=== PATIENT | female | born 1945 | race Caucasian/White ===

== ENCOUNTER 2016-08-30 12:32 | Emergency (ER) | payer MEDICARE ==
[2016-08-30] MEDS ORDERED: MORPHINE SULFATE 5 MG/ML PFS IVP ONE ×2 (13:14→15:11)
[2016-08-30] MEDS ORDERED: 0.9 % SODIUM CHLORIDE 1,000 ML BAG IV ONE (13:14)
--- NOTE | 2016-08-30 13:20 | Emergency Department Record ---
History of Present Illness - General Chief Complaint: Fall Injury Stated Complaint: FALL/ R RIB PAIN/ R ELBOW INJURY Time Seen by Provider: 08/30/16 13:06 Source: Patient Mode of Arrival: Ambulatory Limitations: No limitations - History of Present Illness Initial Comments: 71 yo female presents with right rib and RUQ pain. She fell 5 days ago in [place] on vacation. She was not evaluated there as they were nearing boarding her plane home. She has had right lower rib pain and RUQ pain since the fall. She did not hit her head or neck. She bruised her right elbow as well. MD Complaint: Fall Onset/Timin -: Days(s) Fall From: Down stairs (#) When Fall Occurred: # Days [employer] Fall Witnessed: Yes, by family Place Fall Occurred: Other Loss of Consciousness: None Prolonged Down Time?: No Symptoms Prior to Fall: Other Location: Head, Chest, Abdomen Location - Extremities: Right: Elbow Severity: Moderate Severity scale (1-10): 8 Quality: Sharp Associated Symptoms: Denies - Jamshid Coma Scale Eye Response: (4) Open spontaneously Motor Response: (6) Obeys commands Verbal Response: (5) Oriented Jamshid Total: 15 - Related Data Home Medications Medication Instructions Recorded Confirmed Last Taken Alprazolam [Xanax] 1 mg PO ASDIR 01/15/16 08/30/16 08/29/16 Carvedilol [Coreg] 12.5 mg PO DAILY 01/15/16 08/30/16 08/30/16 Gabapentin [Gabapentin] 100 mg PO BID 01/15/16 08/30/16 08/30/16 Gabapentin [Gabapentin] 400 mg PO QHS 01/15/16 08/30/16 08/29/16 Nortriptyline HCl [Pamelor] 25 mg PO QHS 01/15/16 08/30/16 08/29/16 Omeprazole [Prilosec] 20 mg PO DAILY 01/15/16 08/30/16 08/29/16 Oxybutynin Chloride [Oxybutynin 10 mg PO DAILY 01/15/16 08/30/16 08/29/16 Chloride ER] Sertraline HCl [Sertraline HCl] 100 mg PO BID 01/15/16 08/30/16 08/30/16 Simvastatin [Simvastatin] 40 mg PO DAILY 01/15/16 08/30/1617 Sumatriptan Succinate [Imitrex] 100 mg PO ASDIR 01/15/16 08/30/16 08/29/16 Previous Rx's Medication Instructions Recorded Docusate Sodium [Colace] 100 mg PO DAILY #20 cap 08/30/16 Hydrocodone/Acetaminophen [Randlett 1 each PO Q6H #25 tablet 08/30/16 7.5-325 Tablet] Lidocaine Patch [Lidoderm] 1 ea TOP Q12H #14 patch 08/30/16 Allergies Allergy/AdvReac Type Severity Reaction Status Date / Time povidone-iodine Allergy HIVES Verified 01/15/16 16:12 [From Betadine] soap [From Betadine] Allergy HIVES Verified 01/15/16 16:12 Travel Screening - Travel/Exposure Within Last 30 Days Have you traveled within the last 30 days?: Yes Location Detail:: [place] - Travel/Exposure Within Last Year Have you traveled outside the [place] in the last year?: Yes Location Detail:: [place] - Additonal Travel Details Have you been exposed to anyone with a communicable illness?: No - Travel Symptoms Symptom Screening: None Review of Systems Constitutional: Denies: Chills, Fever, Malaise, Weakness Eyes: Denies: Eye discharge, Eye pain ENT: Denies: Congestion, Ear pain, Throat pain Respiratory: Denies: Cough, Dyspnea, Hemoptysis, Stridor, Wheezes Cardiovascular: Reports: Chest pain. Denies: Palpitations, Syncope Endocrine: Denies: Fatigue, Polydipsia, Polyuria Gastrointestinal: Reports: Abdominal pain. Denies: Diarrhea, Nausea, Vomiting Genitourinary: Denies: Dysuria, Hematuria, Urgency Musculoskeletal: Reports: As per HPI, Arthralgia, Myalgia. Denies: Back pain, Joint swelling, Neck pain Skin: Reports: Bruising Neurological: Denies: Headache, Numbness, Vertigo, Weakness Psychiatric: Denies: Anxiety Hematological/Lymphatic: Denies: Blood Clots, Easy bleeding, Easy bruising, Swollen glands Past Medical History - SOCIAL HISTORY Smoking Status: Never smoker Alcohol Use: None Drug Use: None - RESPIRATORY Hx Respiratory Disorders: No - CARDIOVASCULAR Hx Cardio Disorders: Yes Hx Hypertension: Yes Comment:: hypercholesteremia - NEURO Hx Neuro Disorders: Yes Hx CVA: Yes (dbl vision) Hx Headaches: Yes Hx Neuropathy: Yes - GI Hx GI Disorders: Yes Hx Reflux: Yes Hx Irritable Bowel: Yes - Hx Genitourinary Disorders: Yes Hx Bladder Problem: Yes Hx Kidney Stones: Yes - ENDOCRINE Hx Endocrine Disorders: No - MUSCULOSKELETAL Hx Musculoskeletal Disorders: Yes Hx Arthritis: Yes - PSYCH Hx Psych Problems: Yes Hx Anxiety: Yes Hx Depression: Yes - HEMATOLOGY/ONCOLOGY Hx Hematology/Oncology Disorders: Yes Hx Anemia: Yes Family Medical History Any Significant Family History?: No Physical Exam - General General Appearance: Alert, Oriented x3, Cooperative, No acute distress Limitations: No limitations - Head Head exam: Atraumatic, Normocephalic, Normal inspection Head exam detail: negative: Abrasion, Contusion, Jasmine's sign, General tenderness, Hematoma, Laceration - Eye Eye exam: Normal appearance, PERRL. negative: Conjunctival injection, Periorbital swelling - ENT ENT exam: Normal exam, Mucous membranes moist, Normal external ear exam, Normal orophraynx Ear exam: Normal external inspection. negative: External canal tenderness Nasal Exam: Normal inspection. negative: Discharge, Sinus tenderness Mouth exam: Normal external inspection, Tongue normal Teeth exam: Normal inspection. negative: Dental caries Throat exam: Normal inspection. negative: Tonsillar erythema, Tonsillar exudate - Neck Neck exam: Normal inspection, Full ROM. negative: Tenderness - Respiratory Respiratory exam: Chest wall tenderness (right lower lateral ribs tender, no bruising). negative: Accessory muscle use, Decreased breath sounds, Prolonged expiratory, Respiratory distress - Cardiovascular Cardiovascular Exam: Regular rate, Normal rhythm, Normal heart sounds Peripheral Pulses: 2+: Radial (R), Radial (L) - GI/Abdominal GI/Abdominal exam: Soft, Tenderness (tender RUQ near tender lower ribs, soft, otherwise non tender) - Rectal Rectal exam: Deferred - exam: Deferred - Extremities Extremities exam: Full ROM, Normal capillary refill, Tenderness (tender and bruising to right elbow, full ROM). negative: Normal inspection, Calf tenderness, Pedal edema Image of Full Body: 1 - posterior bruising mild swelling 2 - small abrasions 3 - tender to palpaion, normal inspection - Back Back exam: Reports: Normal inspection, Full ROM. Denies: CVA tenderness (R), CVA tenderness (L), Muscle spasm, Paraspinal tenderness, Rash noted, Tenderness , Vertebral tenderness - Neurological Neurological exam: Alert, Normal gait, Oriented X3 - Psychiatric Psychiatric exam: Normal affect, Normal mood. negative: Agitated, Anxious - Skin Skin exam: Abrasion Course Vital Signs 08/30/16 12:44 Temperature 98.2 F Pulse Rate 76 Respiratory 16 Rate Blood Pressure 141/94 Pulse Ox 97 - Reevaluation(s) Reevaluation #1: The lab results were reviewed. No acute changes on the CBC or CMP The XR of the elbow was read as soft tissue swelling ow negative The CT scan of the chest, abdomen, and pelvis was reviewed. No acute injury. She has a heavily calcified cystic lesion in the liver. 08/30/16 15:29 Reevaluation #2: 08/30/16 16:23the patient is aware of the liver cyst that has been known since the . She was instructed to still follow up the final CT result with the PCP Medical Decision Making - Lab Data Result diagrams: 08/30/16 13:20 08/30/16 13:20 Disposition Disposition: Discharge Clinical Impression: Contusion, Contusion of rib on right side Disposition: Home, Self-Care Condition: (1) Good Instructions: Rib Contusion (ED) Additional Instructions: You will need to follow up the CT findings with your doctor to discuss follow up studies if needed of the thyroid and the liver cyst Use the incentive spirometer as directed to help expand your lungs Return if you have uncontrolled pain or any other new concerns You may need an MRI of the abdomen with contrast of the liver if you do not have other prior tests of your liver. Call your doctor tomorrow for close follow up Prescriptions: Docusate Sodium [Colace] 100 mg PO DAILY #20 cap Hydrocodone/Acetaminophen [Randlett 7.5-325 Tablet] 1 each PO Q6H #25 tablet Lidocaine Patch [Lidoderm] 1 ea TOP Q12H #14 patch Forms: Patient Portal Access Time of Disposition: 16:12
[2016-08-30 13:43] LABS: BASO % 0.7 % (0-6); EOS % 3.7 % (0-6); GRAN % 64.9 % (47-80); HEMATOCRIT 42.4 % (35.0-47.0); HEMOGLOBIN 14.1 gm/dl (11.6-16.0); LYMPH % 22.4 % (16-45); MEAN CELL VOLUME 91.2 fl (81-97); MEAN CORPUSCULAR HEMOGLOBIN 30.3 pg (27-33); MEAN CORPUSCULAR HGB CONC 33.3 g/dl (32-36); MEAN PLATELET VOLUME 8.1 fl (7.4-10.4); MONO % 8.3 % (0-9); PLATELET COUNT 208 K/uL (130-400); RED BLOOD COUNT 4.65 M/uL (3.80-5.40); RED CELL DISTRIBUTION WIDTH 14.3 % (11.5-14.5); WHITE BLOOD COUNT W/O DIFF 6.7 K/uL (4.2-12.2)
[2016-08-30 13:53] LABS: ALB/GLOB RATIO 1.4 (1.1-1.8); ALBUMIN 4.5 gm/dL (3.5-5.0); ALKALINE PHOSPHATASE 102 U/L (38-126); ALT/SGPT 34 U/L (9-52); ANION GAP 6.8 (7-16); AST/SGOT 32 U/L (14-36); BILIRUBIN,TOTAL 0.66 mg/dL (0.2-1.3); BLOOD UREA NITROGEN 15 mg/dL (7-17); CARBON DIOXIDE 27.2 mmol/L (22-30); CREATININE 0.9 mg/dL (0.52-1.04); EST GLOMERULAR FILTRATION RATE > 60 ml/min; GLUCOSE,RANDOM 113 mg/dL (70-110); TOTAL PROTEIN 7.7 gm/dL (6.3-8.2)
[2016-08-30 14:04] LABS: PARTIAL THROMBOPLASTIN TIME 28.7 SECONDS (24.5-39.1); PROTHROMBIN TIME (PATIENT) 11.3 SECONDS (9.5-12.1)
[2016-08-30] MEDS ORDERED: LIDOCAINE 5% PATCH TOP ONE (15:11)
[2016-08-30] MEDS ORDERED: DIPHENHYDRAMINE HCL IV 50 MG/ML VIAL IVP ONE (15:38)
--- NOTE | 2016-09-03 08:29 | RADIOLOGY REPORT ---
EXAM: RIGHT ELBOW HISTORY: ELBOW PAIN. TECHNIQUE: Three views of the right elbow were obtained. Comparison: None. Encounter: Initial. FINDINGS: Negative for fracture or dislocation. The soft tissues are unremarkable. The joint spaces are preserved. IMPRESSION: NEGATIVE RIGHT ELBOW EXAMINATION. JOB NUMBER: [id number] MTDD
--- NOTE | 2016-09-03 08:36 | CT SCAN REPORT ---
EXAM: CT OF THE CHEST, ABDOMEN AND PELVIS HISTORY: PAIN. TECHNIQUE: CT of the chest, abdomen and pelvis was performed following IV administration of 100 ml of Omnipaque 300 contrast. Oral contrast was also administered. Comparison: None. FINDINGS: CT OF THE CHEST: Nodularity of the left lobe of the thyroid correlate with function. Bilateral breast prostheses. The heart and pericardium are unremarkable. Calcified mediastinal and hilar lymph nodes. No pneumothorax. The visualized airways are patent. Calcified granulomata are noted bilaterally. Linear scarring in the lateral right upper lobe. No effusion. Scarring in each lung base. CT OF THE ABDOMEN AND PELVIS: The osseous structures of the abdomen/pelvis are grossly intact. There is a heavily calcified mass in the posterior right hepatic lobe measuring 6.2 x 5.4 cm. The etiology is indeterminate. This could relate to a heavily calcified cyst. Calcified metastatic lesion felt less likely. The spleen, adrenal glands, pancreas, and kidneys are unremarkable. The gallbladder is present. No evidence for bowel obstruction. No free air or free fluid. Moderate stool in the colon. IMPRESSION: 1. EVIDENCE OF PRIOR GRANULOMATOUS DISEASE. BILATERAL BREAST PROSTHESES. 2. NODULARITY OF THE LEFT LOBE OF THE THYROID. CORRELATE WITH THYROID FUNCTION. 3. HEAVILY CALCIFIED CYSTIC MASS IN THE RIGHT HEPATIC LOBE MAY SIMPLY RELATE TO A CALCIFIED HEPATIC CYST. NEOPLASTIC ETIOLOGY CANNOT BE EXCLUDED ENTIRELY. 4. MODERATE STOOL THROUGHOUT THE COLON. JOB NUMBER: [id number] [facility]
== END 2016-08-30 16:30 | disposition home or self-care (01) ==
LOC: ER 12:32
DX: S20.211A Contusion of right front wall of thorax, initial encounter (principal); S50.01XA Contusion of right elbow, initial encounter; S80.12XA Contusion of left lower leg, initial encounter; R10.11 Right upper quadrant pain; K76.89 Other specified diseases of liver; W10.9XXA Fall (on) (from) unspecified stairs and steps, initial encounter; Y92.838 Other recreation area as the place of occurrence of the external cause
CPT/HCPCS: 99284 ×2; 96376; 96374; 96375; 85025; 85730; 85610; 80053; 73080; 71260; 74177; 94010; Q9967; J2270; J1200; J7030

== ENCOUNTER 2017-02-11 15:26 | Emergency (ER) | payer MEDICARE ==
--- NOTE | 2017-02-11 16:21 | Emergency Department Record ---
History of Present Illness - General Chief complaint: Female Urogenital Problem Stated complaint: ABD PAIN Time Seen by Provider: 02/11/17 16:12 Source: Patient, RN notes reviewed Mode of Arrival: Ambulatory - History of Present Illness Initial comments: abdominal pain and dysuria started 3 weeks ago and she has right flank pain and abdominal pain and bilateral low back pain Onset/Timin -: Week(s) Location: Suprapubic Severity: Moderate Severity scale (1-10): 7 Quality: Sharp, Stabbing, Other Consistency: Intermittent Improves with: None Worsens with: Movement Associated Symptoms: Denies other symptoms - Related Data Previous Rx's Medication Instructions Recorded Docusate Sodium [Colace] 100 mg PO DAILY #20 cap 08/30/16 Ciprofloxacin HCl [Cipro] 500 mg PO Q12HR #20 tablet 02/11/17 Hydrocodone/Acetaminophen [Salyer 1 each PO Q6HR #30 tablet 02/11/17 5-325 Tablet] Allergies Allergy/AdvReac Type Severity Reaction Status Date / Time povidone-iodine Allergy HIVES Verified 02/11/17 15:53 [From Betadine] soap [From Betadine] Allergy HIVES Verified 02/11/17 15:53 Travel Screening - Travel/Exposure Within Last 30 Days Have you traveled within the last 30 days?: No - Travel/Exposure Within Last Year Have you traveled outside the [place] in the last year?: No - Additonal Travel Details Have you been exposed to anyone with a communicable illness?: No - Travel Symptoms Symptom Screening: None Review of Systems Reviewed: No additional complaints except as noted below Constitutional: Reports: As per HPI. Denies: Chills, Fever, Malaise, Night sweats, Weakness, Weight change Eyes: Reports: As per HPI. Denies: Eye discharge, Eye pain, Photophobia, Vision change ENT: Reports: As per HPI. Denies: Congestion, Dental pain, Ear pain, Epistaxis , Hearing loss, Throat pain Respiratory: Reports: As per HPI. Denies: Cough, Dyspnea, Hemoptysis, Stridor, Wheezes Cardiovascular: Reports: As per HPI. Denies: Arrhythmia, Chest pain, Dyspnea on exertion, Edema, Murmurs, Orthopnea, Palpitations, Paroxysmal nocturnal dyspnea, Rheumatic Fever, Syncope Endocrine: Reports: As per HPI. Denies: Fatigue, Heat or cold intolerance, Polydipsia, Polyuria Gastrointestinal: Reports: As per HPI, Abdominal pain. Denies: Constipation, Diarrhea, Hematemesis, Hematochezia, Melena, Nausea, Vomiting Genitourinary: Reports: As per HPI, Dysuria, Frequency, Urgency. Denies: Abnormal menses, Discharge, Dyspareunia, Hematuria, Incontinence, Retention Musculoskeletal: Reports: As per HPI, Back pain. Denies: Arthralgia, Gout, Joint swelling, Myalgia, Neck pain Skin: Reports: As per HPI. Denies: Bruising, Change in color, Change in hair/ nails, Lesions, Pruritus, Rash Neurological: Reports: As per HPI. Denies: Abnormal gait, Confusion, Headache, Numbness, Paresthesias, Seizure, Tingling, Tremors, Vertigo, Weakness Psychiatric: Reports: As per HPI. Denies: Anxiety, Auditory hallucinations, Depression, Homicidal thoughts, Suicidal thoughts, Visual hallucinations Hematological/Lymphatic: Reports: As per HPI. Denies: Anemia, Blood Clots, Easy bleeding, Easy bruising, Swollen glands Past Medical History - SOCIAL HISTORY Smoking Status: Never smoker Alcohol Use: Occasional Drug Use: None - RESPIRATORY Hx Respiratory Disorders: No - CARDIOVASCULAR Hx Cardio Disorders: Yes Hx Hypertension: Yes Comment:: hypercholesteremia - NEURO Hx Neuro Disorders: Yes Hx CVA: Yes (dbl vision) Hx Headaches: Yes Hx Neuropathy: Yes - GI Hx GI Disorders: Yes Hx Reflux: Yes Hx Irritable Bowel: Yes - Hx Genitourinary Disorders: Yes Hx Bladder Problem: Yes Hx Kidney Stones: Yes - ENDOCRINE Hx Endocrine Disorders: No - MUSCULOSKELETAL Hx Musculoskeletal Disorders: Yes Hx Arthritis: Yes - PSYCH Hx Psych Problems: Yes Hx Anxiety: Yes Hx Depression: Yes - HEMATOLOGY/ONCOLOGY Hx Hematology/Oncology Disorders: Yes Hx Anemia: Yes Family Medical History Any Significant Family History?: No Physical Exam - General General Appearance: Alert, Oriented x3, Cooperative, Mild distress - Head Head exam: Normal inspection - Eye Eye exam: Normal appearance, PERRL Pupils: Normal accommodation - ENT ENT exam: Normal exam, Mucous membranes moist, Normal external ear exam, Normal orophraynx, TM's normal bilaterally Ear exam: Normal external inspection. negative: External canal tenderness Nasal Exam: Normal inspection. negative: Discharge, Sinus tenderness Mouth exam: Normal external inspection, Tongue normal Teeth exam: Normal inspection. negative: Dental caries Throat exam: Normal inspection. negative: Tonsillar erythema, Tonsillar exudate - Neck Neck exam: Normal inspection, Full ROM. negative: Tenderness - Respiratory Respiratory exam: Normal lung sounds bilaterally. negative: Respiratory distress - Cardiovascular Cardiovascular Exam: Regular rate, Normal rhythm, Normal heart sounds - GI/Abdominal GI/Abdominal exam: Soft, Normal bowel sounds, Tenderness (right flank and bilateral lower abd pain and bilateral lumbar pain) - Rectal Rectal exam: Deferred - exam: Deferred - Extremities Extremities exam: Normal inspection, Full ROM, Normal capillary refill. negative: Tenderness - Back Back exam: Reports: Normal inspection, Full ROM. Denies: Muscle spasm, Rash noted, Tenderness - Neurological Neurological exam: Alert, Normal gait, Oriented X3, Reflexes normal - Psychiatric Psychiatric exam: Normal affect, Normal mood - Skin Skin exam: Dry, Intact, Normal color, Warm Course Vital Signs 02/11/17 15:56 Temperature 98.2 F Pulse Rate 94 H Respiratory 17 Rate Blood Pressure 134/69 Pulse Ox 98 - Reevaluation(s) Reevaluation #1: Patient stated she has had this liver mass since 1992 and it was worked up in [place] and no biopsy because to dangerous to biopsy because of risk of bleeding. 02/11/17 18:11 Medical Decision Making - Data Complexity MDM Data: Labs Ordered and/or Reviewed, X-Ray Ordered and/or Reviewed ( calcified mass in the liver similar to before) - Lab Data Result diagrams: 02/11/17 16:22 02/11/17 17:02 Disposition Clinical Impression: Dysuria, Mass of right lobe of liver Abdominal pain Qualifiers: Abdominal location: right upper quadrant Qualified Code(s): R10.11 - Right upper quadrant pain UTI (urinary tract infection) Qualifiers: Urinary tract infection type: acute cystitis Hematuria presence: without hematuria Qualified Code(s): N30.00 - Acute cystitis without hematuria Disposition: Home, Self-Care Condition: (1) Good Instructions: Abdominal Pain (ED) Additional Instructions: follow up with Dr. Bhavya mack as scheduled [place] 5 mg every 6 hours Prescriptions: Hydrocodone/Acetaminophen [Salyer 5-325 Tablet] 1 each PO Q6HR #30 tablet Ciprofloxacin HCl [Cipro] 500 mg PO Q12HR #20 tablet Forms: Patient Portal Access Time of Disposition: 18:41 Quality - Quality Measures Quality Measures: N/A - Blood Pressure Screening Does Patient Have Any of the Following: Active Dx of HTN Blood Pressure Classification: Pre-Hypertensive BP Reading Systolic Measurement: 134 Diastolic Measurement: 69 Screening for High Blood Pressure: Patient Exclusion, Hx of HTN [[id number]]
[2017-02-11] MEDS ORDERED: 0.9 % SODIUM CHLORIDE 1000ML 1,000 ML IV PRN (16:22)
[2017-02-11 16:59] LABS: BASO % 0.7 % (0-6); EOS % 5.3 % (0-6); GRAN % 48.7 % (47-80); HEMATOCRIT 41.1 % (35.0-47.0); HEMOGLOBIN 13.9 gm/dl (11.6-16.0); LYMPH % 35.3 % (16-45); MEAN CELL VOLUME 89.9 fl (81-97); MEAN CORPUSCULAR HEMOGLOBIN 30.4 pg (27-33); MEAN CORPUSCULAR HGB CONC 33.8 g/dl (32-36); MEAN PLATELET VOLUME 8.6 fl (7.4-10.4); PLATELET COUNT 207 K/uL (130-400); RED BLOOD COUNT 4.57 M/uL (3.80-5.40); RED CELL DISTRIBUTION WIDTH 13.2 % (11.5-14.5); WHITE BLOOD COUNT W/O DIFF 4.5 K/uL (4.2-12.2)
[2017-02-11 17:18] LABS: ALBUMIN 4.3 g/dL (4.0-5.0); ALKALINE PHOSPHATASE 72 U/L (35-104); ALT/SGPT 19 U/L (<33); AST/SGOT 19 U/L (10.0-35.0); BLOOD UREA NITROGEN 16 mg/dL (8-23); CREATININE 0.8 mg/dL (0.5-0.9); EST GLOMERULAR FILTRATION RATE > 60 mL/min; GLUCOSE,RANDOM 102 mg/dL (74-109); LIPASE 46 U/L (13-60); TOTAL PROTEIN 6.8 g/dL (6.6-8.7)
[2017-02-11 17:20] LABS: BILIRUBIN,DIRECT < 0.2 mg/dL (0-0.3)
[2017-02-11] MEDS ORDERED: ONDANSETRON HCL IV 4 MG/2 ML VIAL IVP ONE (17:56)
[2017-02-11] MEDS ORDERED: HYDROMORPHONE HCL 1MG/ML **SYRINGE IVP ONE (17:56)
[2017-02-11 18:30] LABS: URINE APPEARANCE CLEAR; URINE BILIRUBIN NEGATIVE (NEGATIVE); URINE BLOOD TRACE-I (NEGATIVE); URINE COLOR YELLOW; URINE GLUCOSE (UA) NEGATIVE (NEGATIVE); URINE KETONE NEGATIVE (NEGATIVE); URINE LEUKOCYTE ESTERASE TRACE (NEGATIVE); URINE NITRITE POSITIVE (NEGATIVE); URINE PROTEIN NEGATIVE (NEGATIVE); URINE UROBILINOGEN 0.2 E.U./dL (0.20 - 1.00)
[2017-02-11 18:43] LABS: URINE BACTERIA 3+
[2017-02-11] MEDS ORDERED: CIPROFLOXACIN HCL 500 MG TABLET PO ONE (18:47)
--- NOTE | 2017-02-12 12:24 | CT SCAN REPORT ---
DATE: 02/11/2017 at 5:02 p.m. EXAM: EMERGENCY CT OF THE ABDOMEN AND PELVIS WITHOUT CONTRAST. HISTORY: Right flank pain and abdominal pain. TECHNIQUE: Axial CT scan of the abdomen and pelvis was performed without oral or intravenous contrast. COMPARISON: Prior CT of the abdomen and pelvis dated 08/30/2016. FINDINGS: No intrarenal calculi identified on either side. No hydronephrosis or hydroureter is seen on either side. As such, it is somewhat difficult to follow the entire course of both ureters in their non-dilated state throughout the retroperitoneum and pelvis, but no definite ureteral calculus is seen on either side. No bladder calculus is evident. No calcified gallstone seen within the gallbladder. Large, partially calcified mass posteriorly right lobe of the liver with the calcified component appearing essentially unchanged from the prior CT. The noncalcified component is much better demonstrated on the prior postcontrast study but has probably not changed significantly in the interval. Correlation with prior workup suggested. Bilateral breast implants again partially seen. Evaluation of the bowel and viscera is very limited without oral or intravenous contrast. Given this limitation, no definite new hepatic mass is seen, and no definitive splenic, adrenal, pancreatic, or renal mass identified. Innumerable calcified granulomas in the lung bases and some calcified splenic granulomas as before. Small hiatal hernia. The uterus is not identified and is presumably surgically absent. Appendix not well seen without contrast, but no appendicitis is identified. No free intraperitoneal air or free intraperitoneal fluid identified. Multilevel degenerative change in the spine similar to before. IMPRESSION: 1. NO DEFINITE URINARY TRACT CALCULI OR HYDRONEPHROSIS IDENTIFIED. 2. RELATIVELY LARGE, PARTIALLY CALCIFIED MASS POSTERIORLY IN THE RIGHT LOBE OF THE LIVER APPEARING ESSENTIALLY UNCHANGED FROM BEFORE. RECOMMEND CORRELATION WITH PRIOR WORKUP. 3. BILATERAL BREAST IMPLANTS PARTIALLY SEEN. 4. BIBASILAR CALCIFIED GRANULOMAS WITH SOME CALCIFIED SPLENIC GRANULOMAS WELL. 5. MULTILEVEL DEGENERATIVE CHANGE IN THE SPINE. 6. POSTOPERATIVE HYSTERECTOMY. JOB NUMBER: [id number] MTDD
== END 2017-02-11 19:08 | disposition home or self-care (01) ==
LOC: ER 15:26
DX: N30.00 Acute cystitis without hematuria (principal); R16.0 Hepatomegaly, not elsewhere classified; R30.0 Dysuria; R10.11 Right upper quadrant pain
CPT/HCPCS: 99284 ×2; 96374; 96375; 83690; 85025; 80076; 80048; 81001; 74176; J2405; J1170

== ENCOUNTER 2017-04-21 12:34 | Observation (INO) | payer MEDICARE ==
[2017-04-21] MEDS ORDERED: 0.9 % SODIUM CHLORIDE 1,000 ML BAG IV ONE (12:48)
--- NOTE | 2017-04-21 12:58 | Emergency Department Record ---
History of Present Illness - General Chief Complaint: Syncope Stated Complaint: SYNCOPY Time Seen by Provider: 04/21/17 12:37 Source: Patient Mode of Arrival: Stretcher Limitations: No limitations - History of Present Illness Initial Comments: The patient is here due to almost passing out in the hallway here at [facility]. She was on her way to the bathroom and became lightheaded. It then worsened so she began to bring herself down to the floor. She did not fall or hit her head. The patient thinks she may have passed out for a few seconds. Due to the collapse a OUTPATIENT ADMITTING CLERK was called and she was seen very quickly by hospital personal and was found to have a strong pulse. The patient denies any recent illnesses, injuries, new medicines or fevers. She does state she has been getting lightheaded and has passed out multiple times last month. MD Complaint: Almost passed out, Maljamar faint Onset/Timin -: Minutes(s) Prodromal Symptoms: Lightheaded -: Second(s) Injuries Sustained Associated with Event: None Current Symptoms: None History: Previous syncopal episode Treatments Prior to Arrival: None - Related Data Allergies Allergy/AdvReac Type Severity Reaction Status Date / Time povidone-iodine Allergy HIVES Verified 02/11/17 15:53 [From Betadine] soap [From Betadine] Allergy HIVES Verified 02/11/17 15:53 Travel Screening - Travel/Exposure Within Last 30 Days Have you traveled within the last 30 days?: No Review of Systems Constitutional: Denies: Chills, Fever Eyes: Denies: Eye discharge ENT: Denies: Congestion Respiratory: Denies: Cough, Dyspnea Past Medical History - SOCIAL HISTORY Smoking Status: Never smoker Alcohol Use: None Drug Use: None - RESPIRATORY Hx Respiratory Disorders: No - CARDIOVASCULAR Hx Cardio Disorders: Yes Hx Hypertension: Yes Comment:: hypercholesteremia - NEURO Hx Neuro Disorders: Yes Hx CVA: Yes (dbl vision) Hx Headaches: Yes Hx Neuropathy: Yes Comment:: bells palsy - GI Hx GI Disorders: Yes Hx Reflux: Yes Hx Irritable Bowel: Yes - Hx Genitourinary Disorders: Yes Hx Bladder Problem: Yes Hx Kidney Stones: Yes - ENDOCRINE Hx Endocrine Disorders: No - MUSCULOSKELETAL Hx Musculoskeletal Disorders: Yes Hx Arthritis: Yes - PSYCH Hx Psych Problems: Yes Hx Anxiety: Yes Hx Depression: Yes - HEMATOLOGY/ONCOLOGY Hx Hematology/Oncology Disorders: Yes Hx Anemia: Yes Family Medical History Any Significant Family History?: No Physical Exam - General General Appearance: Alert, Oriented x3, Cooperative, No acute distress - Head Head exam: Atraumatic, Normocephalic, Normal inspection - Eye Eye exam: Normal appearance, PERRL, EOMI - ENT Throat exam: Normal inspection. negative: Tonsillar erythema, Tonsillar exudate - Neck Neck exam: Normal inspection, Full ROM. negative: Tenderness - Respiratory Respiratory exam: Normal lung sounds bilaterally. negative: Respiratory distress - Cardiovascular Cardiovascular Exam: Regular rate, Normal rhythm, Normal heart sounds - GI/Abdominal GI/Abdominal exam: Soft, Normal bowel sounds. negative: Tenderness - Extremities Extremities exam: Normal inspection, Full ROM, Normal capillary refill. negative: Tenderness - Neurological Neurological exam: Alert, Normal gait, Oriented X3. negative: Abnormal gait, Altered, Motor sensory deficit - Psychiatric Psychiatric exam: negative: Normal affect, Normal mood Course Vital Signs 04/21/17 12:48 Temperature 98.0 F Pulse Rate [ 53 L Pulse Ox Probe] Respiratory 18 Rate Blood Pressure 133/97 [Left Arm] Pulse Ox 97 - Reevaluation(s) Reevaluation #1: The patient is doing well at this time. She is hemodynamically stable denies any CP, SOB, or lightheadedness. I did recommend a short stay hospital admission and she does agree. I then did discuss the case with Dr. Latif and he agrees with the plan to admit her to the hospital. 04/21/17 14:38 Medical Decision Making - Data Complexity MDM Data: Labs Ordered and/or Reviewed, X-Ray Ordered and/or Reviewed, EKG Ordered and/or Reviewed - Lab Data Result diagrams: 04/21/17 12:52 04/21/17 12:52 - EKG Data -: EKG Interpreted by Me EKG: No Acute Changes, Unchanged From Previous - Radiology Data Radiology results: Report reviewed (CXR and Head CT: Neg for acute changes.) Disposition Disposition: Admit Clinical Impression: Syncope Qualifiers: Syncope type: unspecified Qualified Code(s): R55 - Syncope and collapse Disposition: Still a Patient at [facility] Decision to Admit: Admit from ER Decision to Admit Date: 04/21/17 Decision to Admit Time: 14:39 Accepting Physician: Bhavya Time Discussed w/Accepting Physician: 14:39 Condition: (2) Stable Time of Disposition: 14:39 Quality - Quality Measures Quality Measures: N/A - Blood Pressure Screening View Details: Yes Does Patient Have Any of the Following: No, Active Dx of HTN Blood Pressure Classification: Hypertensive Reading Systolic Measurement: 158 Diastolic Measurement: 90 Screening for High Blood Pressure: Patient Exclusion, Hx of HTN [G9744]
[2017-04-21 13:01] LABS: BASO % 0.4 % (0-6); EOS % 1.9 % (0-6); GRAN % 59.5 % (47-80); HEMATOCRIT 41.3 % (35.0-47.0); HEMOGLOBIN 13.7 gm/dl (11.6-16.0); LYMPH % 29.6 % (16-45); MEAN CELL VOLUME 92.8 fl (81-97); MEAN CORPUSCULAR HEMOGLOBIN 30.8 pg (27-33); MEAN CORPUSCULAR HGB CONC 33.2 g/dl (32-36); MEAN PLATELET VOLUME 7.9 fl (7.4-10.4); MONO % 8.6 % (0-9); PLATELET COUNT 189 K/uL (130-400); RED BLOOD COUNT 4.45 M/uL (3.80-5.40); RED CELL DISTRIBUTION WIDTH 13.7 % (11.5-14.5)
[2017-04-21 13:09] LABS: BLOOD UREA NITROGEN 23 mg/dL (8-23); CREATININE 0.9 mg/dL (0.5-0.9); EST GLOMERULAR FILTRATION RATE > 60 mL/min
[2017-04-21 13:11] LABS: INR 0.99; PARTIAL THROMBOPLASTIN TIME 25.7 SECONDS (24.5-39.1); PROTHROMBIN TIME (PATIENT) 10.7 SECONDS (9.5-12.1)
[2017-04-21 13:12] LABS: GLUCOSE,RANDOM 111 mg/dL (74-109)
[2017-04-21 13:15] LABS: CREATINE PHOSPHOKINASE 39 U/L (26-192)
[2017-04-21 13:25] LABS: THYROID STIMULATING HORMONE 1.78 uIU/mL (0.270-4.20)
[2017-04-21] MEDS ORDERED: ACETAMINOPHEN 325 MG TAB PO ONE (14:18)
[2017-04-21] MEDS ORDERED: ALPRAZOLAM 1 MG TAB PO PRN (16:09)
[2017-04-21 16:12] LABS: URINE APPEARANCE CLEAR; URINE BILIRUBIN NEGATIVE (NEGATIVE); URINE BLOOD NEGATIVE (NEGATIVE); URINE COLOR YELLOW; URINE GLUCOSE (UA) NEGATIVE (NEGATIVE); URINE KETONE NEGATIVE (NEGATIVE); URINE LEUKOCYTE ESTERASE NEGATIVE (NEGATIVE); URINE NITRITE POSITIVE (NEGATIVE); URINE PROTEIN NEGATIVE (NEGATIVE); URINE UROBILINOGEN 0.2 E.U./dL (0.20 - 1.00)
[2017-04-21] MEDS ORDERED: DOCUSATE SODIUM 100 MG CAPSULE PO PRN (16:31)
[2017-04-21 16:36] LABS: URINE BACTERIA 3+; URINE EPITHELIAL CELLS 0 - 2 (FEW); URINE RBC NONE SEEN (NONE SEEN); URINE WBC 0 - 2 (0-2/hpf)
[2017-04-21] MEDS: GABAPENTIN 100 MG CAPSULE PO SCH ×2 (17:36→22:30)
[2017-04-21] MEDS ORDERED: GABAPENTIN 100 MG CAPSULE PO SCH (22:00)
[2017-04-21] MEDS ORDERED: NORTRIPTYLINE HCL 50 MG PO SCH (22:00)
[2017-04-21] MEDS ORDERED: SIMVASTATIN 20 MG TABLET PO SCH (22:00)
[2017-04-21] MEDS: CARVEDILOL 12.5 MG TABLET PO SCH (22:30)
[2017-04-21] MEDS: SERTRALINE HCL 50 MG TABLET PO SCH (22:30)
[2017-04-22 05:23] LABS: BASO % 0.6 % (0-6); GRAN % 41.1 % (47-80); HEMATOCRIT 40.1 % (35.0-47.0); HEMOGLOBIN 13.3 gm/dl (11.6-16.0); LYMPH % 46.7 % (16-45); MEAN CELL VOLUME 93.3 fl (81-97); MEAN CORPUSCULAR HEMOGLOBIN 30.9 pg (27-33); MEAN CORPUSCULAR HGB CONC 33.2 g/dl (32-36); MEAN PLATELET VOLUME 8.1 fl (7.4-10.4); MONO % 7.6 % (0-9); PLATELET COUNT 183 K/uL (130-400); RED CELL DISTRIBUTION WIDTH 13.8 % (11.5-14.5); WHITE BLOOD COUNT W/O DIFF 5.2 K/uL (4.2-12.2)
[2017-04-22 05:41] LABS: ALB/GLOB RATIO 1.5 (1.1-1.8); ALBUMIN 3.7 g/dL (4.0-5.0); BILIRUBIN,TOTAL 0.2 mg/dL (0.2-1.0); TOTAL PROTEIN 6.2 g/dL (6.6-8.7)
[2017-04-22] MEDS: ACETAMINOPHEN 500 MG TABLET PO PRN ×2 (06:48→14:35)
[2017-04-22] MEDS ORDERED: PANTOPRAZOLE SODIUM 40 MG TABLET PO SCH (07:00)
--- NOTE | 2017-04-22 07:16 | RADIOLOGY REPORT ---
EXAM: CHEST, TWO VIEWS HISTORY: SYNCOPAL EPISODE ONE HOUR AGO. TECHNIQUE: PA and lateral views of the chest were obtained. Comparison: Two view chest 01/15/16. FINDINGS: The heart size is within normal limits. Torsion of the aorta. No definite acute infiltrate seen. Hypertrophic spurring in the spine. Prominent calcification right upper quadrant of the abdomen appears to correspond to some prominent calcification in the posterior aspect of the liver on a prior abdomen and pelvis CT of 02/11/17. Please see the CT report for further description of this. Postop changes left shoulder probably with an anchor screw in place. Small calcified granulomas bilaterally as before with calcified hilar nodes. IMPRESSION: 1. NO DEFINITE ACUTE INFILTRATE SEEN. 2. SMALL CALCIFIED GRANULOMAS WITH CALCIFIED HILAR NODES BEFORE. 3. HEPATIC CALCIFICATION ALSO PRESENT PREVIOUSLY AND DESCRIBED ON PRIOR CT SCANS. 4. POSTOP CHANGE LEFT SHOULDER. JOB NUMBER: [id number] MTDD
--- NOTE | 2017-04-22 07:20 | CT SCAN REPORT ---
EXAM: EMERGENCY HEAD CT HISTORY: SYNCOPE EPISODE AN HOUR AGO. TECHNIQUE: Axial CT scan of the head was performed without IV contrast. Comparison: Head CT 01/15/16. FINDINGS: No definite acute intracranial hemorrhage identified. No focal mass effect or midline shift apparent. No definite acute infarct or intracranial mass lesion is seen. Some mild chronic appearing deep white matter changes as before, nonspecific, but likely representing some chronic small vessel deep white matter ischemic disease. No depressed calvarial fracture identified. IMPRESSION: 1. NO DEFINITE ACUTE INTRACRANIAL HEMORRHAGE OR FOCAL MASS EFFECT EVIDENT. 2. MILD CHRONIC APPEARING DEEP WHITE MATTER CHANGES BEFORE. JOB NUMBER: [id number] [facility]
[2017-04-22] MEDS: GABAPENTIN 100 MG CAPSULE PO SCH ×2 (08:09→14:34)
[2017-04-22] MEDS: SERTRALINE HCL 50 MG TABLET PO SCH (09:31)
[2017-04-22] MEDS: CARVEDILOL 12.5 MG TABLET PO SCH (09:35)
--- NOTE | 2017-04-22 12:53 | History and Physical Report ---
DATE: 04/21/2017 at 6:25 p.m. CHIEF COMPLAINT: Syncope. HISTORY OF PRESENT ILLNESS: This 72-year-old female was at the hospital to drive her son after the son was going to have a procedure at the hospital. While she was in the hospital she had to go to the bathroom. When she walked into the bathroom, she passed out and was incontinent of urine. She said she slid down the wall, did not hit her head. She states that her head was swimming and she was lightheaded. She had some warning before she passed out. Rapid response was called. Dr. Bolanos evaluated the patient, admitted the patient for serial cardiac enzymes and a cardiology consult. Reviewing the patient's past medical history, it looks like she has had many evaluations for syncope and lightheadedness and gait problems by Dr. Bolton and Dr. Gillis. She was not totally unconscious. Possibly out for a few seconds. However, when the first person got to her, she was awake. She had a good pulse. She states that in the last 2 months she had similar episodes 5 times. The patient had a normal head CT in the ER, normal chest x-ray, EKG. Verbally was told to me to be normal by Dr. Bolanos. I have not seen the EKG at this time. Looking for it and having a difficult time finding it. Dr. Bolanos diagnosed her with syncope. PAST MEDICAL HISTORY: Hypertension, GERD, liver mass right lobe being worked up, hyperlipidemia, neuropathy, obstructive sleep apnea, polyneuropathy associated with underlying disease, diabetes mellitus type 2, gait abnormalities. High risk for falls. She has had Arthur's palsy and double vision. Possible CVA. History of kidney stones, arthritis. PAST SURGICAL HISTORY: Tonsillectomy, ovarian cyst, hysterectomy, bladder suspension, and cartilage surgery. MEDICATIONS: 1. Prednisone 20 mg twice a day for the rash on her legs and feet. 2. Xanax 1 mg at h.s. 3. Carvedilol 12.5 b.i.d. 4. Pamelor 50 mg at night. 5. Gabapentin 100 mg 4 times a day and 300 mg at night. 6. Omeprazole 20 mg daily. 7. Simvastatin 1 tablet 40 mg at night. 8. Sertraline 200 mg daily. 9. Imitrex p.r.n. 10. Colace p.r.n. ALLERGIES: BETADINE, SOAP. FAMILY/PSYCHOSOCIAL HISTORY: No significant family history. Never smoked. No alcohol or drug use. REVIEW OF SYSTEMS: HEENT: No upper respiratory infection symptoms, cough, cold, or congestion. Cardiovascular: See Chief Complaint. Syncope. She never had any cardiac issues in the past. Respiratory: No cough, cold, or congestion. Gastrointestinal: No nausea, vomiting, diarrhea, black stools, or bloody stools. Genitourinary: No dysuria, hematuria, frequency, or burning on urination. She was incontinent of urine when she had her episode of syncope. Musculoskeletal: She has arthritis in her joints but moving all 4 extremities. Neurological: She has had some double vision. No tremor. She has a headache periodically. Gynecological: No abnormal lumps in her breasts or abnormal vaginal bleeding. Endocrine: She has diabetes mellitus, thyroid nodules, and polyneuropathy. Integument: She has a rash on her legs possibly thought to be due to trimethoprim or Relafen. Those have been recently stopped. PHYSICAL EXAMINATION: VITALS: Height 5 feet 5 inches, weight 166 pounds. Temperature 96.8, pulse 64, blood pressure 158/90, respiratory rate 18, pulse ox 94% on room air. HEENT: Pupils are equal, round, and reactive to light and accommodation. Extraocular muscles are intact. Throat is clear. Nose is clear. Tympanic membranes are welch. NECK: Supple. No jugular venous distention. No hepatojugular reflux. No carotid bruits. Thyroid is smooth. CARDIOVASCULAR: Regular rate and rhythm without murmurs, clicks, rubs, or gallops. RESPIRATORY: Clear to auscultation and percussion. ABDOMEN: Soft, nontender. No hepatosplenomegaly, no masses, no tenderness. Bowel sounds are active. No bruits. EXTREMITIES: No pitting edema. No cyanosis, no clubbing. Full range of motion. Peripheral pulses are good. BREASTS: Exam deferred. GYNECOLOGICAL: Exam deferred. RECTAL: Exam deferred. NEUROLOGIC: Cranial nerves II-XII intact. No gross defects. Sensation normal, strength normal. Deep tendon reflexes equal bilaterally with Babinski negative. MENTAL STATUS: Alert and oriented x3. IMPRESSION: 1. Syncope or near syncope. 2. Incontinence of urine. 3. History of hypertension. 4. History of GERD. 5. History of a mass on her liver by CT scan, being worked up. 6. History of hyperlipidemia. 7. History of thyroid nodules. 8. History of obstructive sleep apnea. 9. History of neuropathy. 10. History of diabetes type 2. 11. History of multiple falls and being worked up for syncopal episodes by Dr. Bolton and Dr. Gillis in the past. 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 Cardiology consult. Also going to cut back on the Neurontin because it may be side effects of medication, Neurontin. MTDD
--- NOTE | 2017-04-22 12:55 | Medical Records Consult ---
DATE OF CONSULT: 04/22/2017 INDICATION: Syncope. Bárbara Sanabria is a very pleasant 72-year-old female who was at [facility] picking up her son who underwent a colonoscopy, she was his transportation, she was walking down the hallway, felt lightheaded and passed out. She states she has passed out multiple times since March. She has had episodes in the past where she has also passed out. She states cardiac work- ups in the past have been unremarkable. We have no records available. There is a limited Emergency Room note that does not even have her medications listed. She denies any chest pain or shortness of breath. She states she had some recent travel out of the country and has developed blisters on her feet. She is planning to see a rotary dryer operator in the near future. She has no other fevers, chills, or night sweats. ALLERGIES: IODINE - HIVES AND BETADINE - HIVES. HOME MEDICATIONS: Xanax 1 mg p.o. q.h. prn, Carvedilol 12.5 mg p.o. b.i.d., Gabapentin 100 mg q.i.d., Gabapentin 300 mg p.o. q.h.s., Pamelor 50 mg p.o. q.h.s., Prilosec 20 mg daily, Sertraline 100 mg b.i.d., Simvastatin 40 mg q.h.s. , Imitrex 100 mg p.o. as directed, sodium docusate 100 mg p.o. b.i.d., and Tylenol 650 mg as needed. PAST MEDICAL HISTORY: Anxiety, hypertension, depression, gastroesophageal reflux disease, hyperlipidemia, migraine headaches and CVA history. History of neurologic disorders, neuropathy. Positive Arthur's Palsy history. Positive for psych issues including anxiety and depression. Positive for hematoma. Oncology disorders unknown type. Positive for anemia. SOCIAL HISTORY: No tobacco. No alcohol. No illicit drug use. REVIEW OF SYSTEMS: General: Denies any fevers, chills, or night sweats. HEENT : No acute hearing or vision changes. Cardiovascular: As above. Syncope. No chest pain. No shortness of breath. She denied any palpitations prior to her syncopal episode. Pulmonary: No cough or hemoptysis. GI: Positive for GERD. : No dysuria or hematuria. Endocrine: Denies diabetes history. No thyroid history. Heme: Positive for anemia. Neuromuscular: Positive for CVA history per Emergency Room records. PHYSICAL EXAMINATION: Vital signs - Temperature is 98.0, pulse is 55, blood pressure is 94/58, respirations are 16, O2 saturation is 95% on room air. GENERAL: Alert in no apparent distress. HEENT: Normocephalic, atraumatic. NECK: Supple. No JVD. No carotid bruits. CARDIOVASCULAR: Regular rhythm. Distant heart sounds. No murmurs are appreciated. PULMONARY: Clear to auscultation. No accessory muscle use. ABDOMEN: Obese, nontender. Positive bowel sounds. EXTREMITIES: No edema. Small blistered noted on heels bilaterally. NEUROMUSCULAR: Moves all extremities on command. Speech is clear. Patient was answering questions appropriately. LABORATORY: See EMR. Hemoglobin 13.7, hematocrit 41.3, platelets 189, sodium 142, potassium 4.0, BUN 23, creatinine 0.9, glucose 111. EKG shows sinus rhythm, low voltage, nonspecific ST-T wave changes, minimal ST elevation inferiorly. Telemetry shows what appears to be runs of polymorphic V-Tach. ASSESSMENT/PLAN: SYNCOPE WITH LIKELY NONSUSTAINED VENTRICULAR TACHYCARDIA NOTED ON TELEMETRY. SHE HAS HAD MULTIPLE EPISODES OF SYNCOPE SINCE MARCH AND EVEN A FEW EPISODES PRIOR IN YEAR'S PAST. I WOULD RECOMMEND TRANSFER TO [facility] TO MEDICINE GIVEN HER BLISTERS SINCE RETURNING BACK FROM TRAVEL. SHE CAN BE SEEN BY CARDIOLOGY AT [facility]. SHE WILL NEED A CONSULT LIKELY BY THE ELECTROPHYSIOLOGY SERVICE, AN ECHOCARDIOGRAM, ISCHEMIC WORK-UP SHOULD BE DONE. EVEN IF HER CARDIAC WORK- UP IS UNREMARKABLE GIVEN HER SYNCOPAL EPISODE NO DRIVING FOR SIX MONTHS. J[facility]BER: [id number] [facility]
--- NOTE | 2017-04-22 15:41 | Discharge Summary ---
DATE: 04/22/2017 DISCHARGE DIAGNOSES: 1. Syncope. 2. Run of ventricular tachycardia on the monitor, one episode. 3. Rash on the feet. 4. Status post diabetes mellitus. 5. Status post GERD. 6. Status post hypertension. 7. Status post mass on the liver which is being worked up by GI. 8. Status post obstructive sleep apnea. 9. Status post neuropathy. 10. Status post anxiety. ATTENDING PHYSICIAN: Nithin Latif DO REASON FOR HOSPITALIZATION: Syncope. This 72-year-old female was in their hospital as a visitor and was going to the bathroom to urinate. She got to the bathroom door and collapsed. Possible loss of consciousness for 1-2 seconds, incontinent of urine. When bystanders got to her, she was talking. No seizure activity. She had a pulse. The ER arrived with a rapid response, took her to the emergency department, evaluated her. Everything was normal. She had a head CT which was normal. Chest x-ray was normal. EKG normal sinus rhythm. She was admitted to the hospital for cardiac enzymes and cardiac monitoring. She had no chest pain. She is eating appropriately. SIGNIFICANT FINDINGS: Head CT was normal. Chest x-ray was normal. EKG no acute changes. Cardiac monitoring showed one episode of V-tach. A short episode, may be artifact. Brushing her teeth at that time. Consultation with Dr. Rico of [facility] who felt because of the episode of V-tach, he wanted her transferred up to [facility] and possibly EP evaluation. HOSPITAL COURSE: Stable. No other episodes since her episode yesterday in the lobby of the hospital at about noon. CONDITION ON DISCHARGE: Stable. Transferring to [facility] for further evaluation. Discussed the case with Dr. Crews, who is the internal medicine doctor taking the patient. Dr. Rico did his consult here at [facility] at [facility]. KATHRYN
== END 2017-04-22 15:03 | disposition short-term general hospital (02) ==
LOC: ER 12:34 → MEDSURG 15:10
PROVIDERS: ADMIT Emergency Medicine; ATTEND Emergency Medicine
DX: R55 Syncope and collapse (principal); I10 Essential (primary) hypertension; K21.9 Gastro-esophageal reflux disease without esophagitis; E78.5 Hyperlipidemia, unspecified; F41.8 Other specified anxiety disorders; E11.8 Type 2 diabetes mellitus with unspecified complications; I69.898 Other sequelae of other cerebrovascular disease; H53.2 Diplopia; Z91.81 History of falling
CPT/HCPCS: 99285 ×2; 82310; 82550; 83735; 85025 ×2; 85730; 85610; 82553 ×2; 80048; 80053; 81001; 84443; 84484 ×2; 71046; 70450; 94761; 93005 ×2; 93010 ×2; G0378 ×2; 93041; J7030

== ENCOUNTER 2017-06-10 09:39 | Day surgery (SDC) | payer MEDICARE ==
[2017-06-10] MEDS ORDERED: LIDOCAINE 2% MDV (20MG/ML) 20ML VIAL IV ONE (09:40)
[2017-06-10] MEDS ORDERED: PROPOFOL 10 MG/ML VIAL IV ONE (09:40)
--- NOTE | 2017-06-14 07:30 | Operative Note ---
DATE OF SURGERY: 06/10/2017 REQUESTING PHYSICIAN: Nithin Latif DO SURGEON: Latoya Rome MD POSTOPERATIVE DIAGNOSES: 1. Normal esophagus with no specific strictures status post Lieberman dilatation to 60 [place] given her history of intermittent dysphagia. 2. Mild gastritis. 3. Normal duodenum. 4. Suboptimal bowel preparation. Cannot rule out any small lesions. OPERATION: 1. ESOPHAGOGASTRODUODENOSCOPY. 2. COLONOSCOPY and exam. REASON FOR PROCEDURE: This is a 72-year-old female with history of Gibbons's esophagus who also had history of colon polyps presenting for both esophagogastroduodenoscopy and colonoscopy. SEDATION: Sedation as per anesthesia. Pulse oximetry was monitored throughout the duration of the procedure to maintain O2 saturation of 90% or greater. Supplemental oxygen was administered via nasal cannula. Cardiac and vital signs were monitored throughout the duration of the procedure and they were stable. PROCEDURE: Description of the procedures of esophagogastroduodenoscopy and colonoscopy, risks and alternatives to the procedures including the risk of bleeding and perforation among others were explained to the patient who voiced understanding and decided to proceed. Physical examination was performed and the patient was found stable for sedation. The patient was then placed in the left lateral position and sedation was initiated. A plastic bite block was inserted into the oral cavity. A lubricated Olympus GIF-180 gastroscope was then placed through the posterior oropharynx without difficulty. The esophageal mucosa was carefully examined upon insertion of the gastroscope. The proximal, mid and distal esophageal mucosa appeared normal. There was no endoscopic evidence of Gibbons's esophageal mucosa. The gastroscope was then advanced to the stomach. Serial examination of the stomach revealed diffuse erythema along the gastric body and antrum but no ulcers were noted. The gastroscope was then advanced to the descending duodenum without difficulty. The duodenal bulb and descending duodenal mucosa appeared normal. The gastroscope was then withdrawn into the stomach and retroflexion was performed. A small hiatal hernia was noted. The gastroscope was then straightened and withdrawn, very carefully re-examining the gastric and esophageal mucosa and no other lesions were noted. Multiple gastric and mid esophageal biopsies were obtained to rule out eosinophilic esophagitis. The gastroscope was then withdrawn and the procedures were terminated. The patient remained with stable vital signs and then welch Lieberman dilator size 60 [place] was then passed into the stomach with mild resistance. The Lieberman dilator was then withdrawn and the procedure was terminated. The patient remained in stable vital signs and was repositioned for colonoscopy. Digital rectal exam was performed and showed small external hemorrhoids with no palpable rectal masses. A lubricated Olympus PCF-180AL colonoscope was then inserted into the rectum under direct visualization and was advanced to the cecum without difficulty. The ileocecal valve and appendiceal orifice were identified and photographed. The colonic mucosa was carefully examined upon insertion of the colonoscope. The bowel preparation was suboptimal, especially in the right colon. The ileocecal valve was intubated and terminal ileal mucosa was inspected for about 10 cm and it appeared normal. The colonoscope was then withdrawn while carefully examining the colonic mucosal surfaces. No other lesions were noted. In the rectum on retroflexion, grade 1 internal hemorrhoids were noted. The colonoscope was then withdrawn and the procedure was terminated. The patient tolerated the procedure well without any complications. The patient remained with stable vital signs and was sent to the recovery room. PLAN AND RECOMMENDATIONS: 1. The patient should be on a high-fiber diet. 2. The patient will have repeat esophagogastroduodenoscopy and colonoscopy in 3 years. Thank you for allowing me to participate in the care of this patient. CC: DO KATHRYN Pelayo
== END 2017-06-10 12:08 | disposition home or self-care (01) ==
LOC: HOP 09:39
PROVIDERS: ATTEND Internal Medicine Gastroenterology
DX: R13.19 Other dysphagia (principal); Z12.11 Encounter for screening for malignant neoplasm of colon; K29.50 Unspecified chronic gastritis without bleeding; Z86.010 Personal history of colon polyps; K64.4 Residual hemorrhoidal skin tags; E78.00 Pure hypercholesterolemia, unspecified; I10 Essential (primary) hypertension; L40.9 Psoriasis, unspecified
CPT/HCPCS: 00813; 43239; 43450; G0121